=== PATIENT | male | born 1995 ===

== ENCOUNTER 2018-07-24 02:54 | Emergency (ER) | payer SELFPAY ==
[2018-07-24 02:56] VITALS: BP 141/89
--- NOTE | 2018-07-24 02:59 | ER Report ---
History and Physical Time Seen By MD: 02:59 Hx. of Stated Complaint: RESIDENTIAL CLEARNACE HPI/ROS CHIEF COMPLAINT: Long-Term clearance HISTORY OF PRESENT ILLNESS: This is a 23-year-old male. Picked up by the police, intoxicated. He denies any pain or problems other than drinking too much tonight. He is very intoxicated. Unable To Obtain Past Medical: Unable to Obtain/Update Reviewed Nurses Notes: Yes Constitutional Vital Sign - Last 24 Hours 07/24/18 02:56 Temp 97.8 Pulse 93 Resp 16 B/P (MAP) 141/89 Pulse Ox 96 O2 Delivery Room Air Physical Exam General Appearance: Alert, no distress. Intoxicated. Eyes: Pupils equal and round, he does have scleral injection. ENT: Normal oral mucosa. Moist mucous membranes. Neck: Neck is supple and non tender. Respiratory: Lungs are clear to auscultation. Cardiac: regular rate and rhythm Gastrointestinal: Abdomen soft, nontender. Musculoskeletal: Extremities nontender with full range of motion. Nontender in t he back and neck. DIFFERENTIAL DIAGNOSIS: After history and physical exam differential diagnosis was considered for alcohol intoxication Medical Decision Making ED Course/Re-evaluation ED Course No other concerns at this time. Decision to Disposition Date: Jul 24, 2018 Decision to Disposition Time: 03:02 Depart Departure Latest Vital Signs Vital Signs Date Time Temp Pulse Resp B/P (MAP) Pulse Ox O2 Delivery O2 Flow Rate FiO2 07/24/18 02:56 97.8 93 16 141/89 96 Room Air Impression: Primary Impression: Alcohol intoxication Condition: Improved Disposition: HOME OR SELF-CARE Patient Instructions: Alcohol Intoxication (ED) Problem Qualifiers Primary Impression: Alcohol intoxication Complication of substance-induced condition: uncomplicated Qualified Codes: F10.920 - Alcohol use, unspecified with intoxication, uncomplicated PRASAD POP MD Jul 24, 2018 02:59
== END 2018-07-24 03:10 ==
LOC: ER 03:00
DX: F10.920 Alcohol use, unspecified with intoxication, uncomplicated (principal)
CPT/HCPCS: 99281